=== PATIENT | male | born 1945 | race Caucasian/White ===

== ENCOUNTER 2018-02-19 07:58 | Day surgery (SDC) | payer OTHER ==
[2018-02-13 15:36] VITALS: BMI 25.4
[2018-02-19] MEDS ORDERED: PROPOFOL 20 ML ONE ×2 (08:03)
[2018-02-19 09:45] VITALS: TEMP 98
[2018-02-19 10:06] VITALS: BP 134/75; PULSE 70
--- NOTE | 2018-02-20 12:20 | PATH ---
Surgical Pathology Report Patient Name: MICK VARELA [facility]. Rec. #: [id number] /Age/Gender: 1945 (Age: 72) / M Account: [id number] Location: [facility] Taken: 02/19/2018 Received: 02/19/2018 Reported: 02/20/2018 Physicians: Ashvin Stokes M.D. Specimen(s) Received BX SIGMOID Clinical History History of polyps Postoperative diagnosis: Polyp Final Diagnosis SIGMOID COLON, BIOPSY: HYPERPLASTIC POLYP. Electronically Signed Cindi Lacey M.D. Gross Description Received in formalin, labeled "sigmoid" is a salazar, irregular portion of soft tissue measuring 0.3 cm. in greatest dimension. The specimen is submitted in toto in one cassette. /02/19/201802/19/2018
== END 2018-02-19 10:07 | disposition home or self-care (01) ==
LOC: FASU-ENDO 07:58
PROVIDERS: ATTEND Internal Medicine Gastroenterology
PROC: 0DBN8ZX Excision of Sigmoid Colon, Via Natural or Artificial Opening Endoscopic, Diagnostic (ICD-10-PCS; principal; 2018-02-19 09:12)
DX: Z86.010 Personal history of colon polyps (principal); Z80.0 Family history of malignant neoplasm of digestive organs; K63.5 Polyp of colon
CPT/HCPCS: 88305-TC